=== PATIENT | female | born 1950 | race Caucasian/White ===

== ENCOUNTER 2018-06-27 10:14 | Outpatient (CLI) | payer MEDICARE ==
--- NOTE | 2018-06-27 13:58 | MRI ---
MRI CERVICAL SPINE NONCONTRASTS: Date: 06/27/18 INDICATION: Cervical spine radiculopathy. FINDINGS: There is straightening of the normal cervical curvature with multilevel disc osteophyte formation eff acing the ventral thecal sac, although there is no significant cord deformity or obvious intramedulla ry signal abnormality. Patient motion is present during the exam, which does limit assessment. C1-2: There is no significant central canal stenosis. C2-3: No high grade central canal stenosis. There is mild left foraminal narrowing due to uncinate p rocess hypertrophy. Right neural foramen is patent. C3-4: No significant central canal stenosis. There is moderate left and mild right neural foraminal narrowing due the patient uncinate process and facet hypertrophy. C4-5: Broad based disc osteophyte complex results in mild narrowing of the central canal, and when c ombined with moderate left degenerative facet hypertrophy, results in severe left foraminal stenosis. There is mild narrowing of the right neural foramen. C5-6: Broad based disc osteophyte results in mild effacement of the ventral thecal sac, and moderate biforaminal stenosis. C6-7: No high grade central canal stenosis. Mild narrowing of each neural foramen on the basis of di sc osteophyte and uncinate process hypertrophy. C7-T1: No significant compromise of central canal or neural foramina. No acute marrow edema or paraspinous soft tissue edema. The imaged posterior fossa contents reveal no acute abnormality. There is cerebellar ectopia, incompletely assessed. IMPRESSION: 1. Multilevel cervical spine degenerative change, as outlined above. 2. 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 Recommend follow-up with de dicated brain MRI. POS: [facility]
== END 2018-06-27 10:15 | disposition home or self-care (01) ==
LOC: TBSIIMAG 10:14
PROVIDERS: ATTEND Specialist
DX: M47.22 Other spondylosis with radiculopathy, cervical region (principal)
CPT/HCPCS: 72141

== ENCOUNTER 2018-11-28 15:32 | Outpatient (CLI) | payer MEDICARE ==
--- NOTE | 2018-11-28 16:49 | RAD ---
LUMBAR SPINE THREE VIEWS: 11/28/18 HISTORY: Lumbar radiculopathy. Bilateral leg pain. FINDINGS: Lateral neutral, lateral extension, lateral flexion views lumbar spine demonstrates five lumbar type vertebral bodies. L4-L5: Neutral 8 mm of anterolisthesis, flexion 9 mm of anterolisthesis, extension 7 mm of anterolist hesis. There is vacuum disc phenomenon at L4-L5. Mild posterior element hypertrophy is noted. IMPRESSION: Spondylolisthesis of L4 upon L5 as above. POS: [facility]
--- NOTE | 2018-11-28 17:04 | MRI ---
MRI LUMBAR SPINE WITHOUT CONTRAST: Date: 11/28/18 HISTORY: Lumbar radiculopathy. Bilateral leg pain. COMPARISON: None. FINDINGS: Appropriate T1 marrow signal intensity of the lumbar vertebra. Lumbar spine vertebral body height is maintained. There is no fracture. No significant STIR hyperintensity to suggest vertebral body edema or ligamentous injury. 4.2 mm of retrolisthesis of T11 upon T12 and 7.4 mm of anterolisthesis of L4 upon L5. Vacuum disc phe nomenon at L4-L5 and L5-S1 is noted. Symmetric signal intensity of the psoas muscles. There are T2 hyperintensities in the left and right renal pelvis likely representing bilateral parapelvic cysts. Conus medullaris terminates at the infer ior aspect of T12. T11-T12: No high grade central canal stenosis. Mild to moderate bilateral foraminal narrowing. T12-L1: Adequate disc hydration. Small central disc protrusion. Mild central canal stenosis. Patent neural foramina. L1-L2: Adequate disc hydration. Mild ligamentum flavum thickening and facet hypertrophy. Overall mil d central canal stenosis. Neural foramina are patent. L2-L3: Adequate disc hydration. There is a broad based disc bulge with a right subarticular componen t. There is narrowing of the right subarticular zone with partial obscuration of the traversing right L3 nerve root. Bilateral facet hypertrophy is noted. Neural foramina are patent. L3-L4: Adequate disc hydration. Generalized disc bulge, ligamentum flavum thickening, and facet hype rtrophy which results in mild central canal stenosis. Mild narrowing of the right subarticular zone s econdary to disc material and facet hypertrophy. Mild bilateral foraminal narrowing. L4-L5: Mild to moderate loss of disc space height. There is left hemilaminectomy defect. Bilateral f acet hypertrophy is noted. There is no high grade central canal stenosis. Mild to moderate right and mild left foraminal narrowing. L5-S1: Minimal desiccation without significant loss of disc space height. Left hemilaminectomy defec t is noted. There is mild facet hypertrophy. No high grade central canal stenosis. Mild to moderate r ight and severe left foraminal narrowing. IMPRESSION: 1. Left laminectomy defect at L4-L5 and L5-S1. 2. Severe left foraminal narrowing at L5-S1. 3. Narrowing of the right subarticular zone at L2-L3. POS: [facility]
== END 2018-11-28 15:33 | disposition home or self-care (01) ==
LOC: TBSIIMAG 15:32
PROVIDERS: ATTEND Nurse Practitioner Family
DX: M54.16 Radiculopathy, lumbar region (principal); M43.16 Spondylolisthesis, lumbar region; M48.061 Spinal stenosis, lumbar region without neurogenic claudication; M48.07 Spinal stenosis, lumbosacral region; R93.7 Abnormal findings on diagnostic imaging of other parts of musculoskeletal system; Z98.890 Other specified postprocedural states
CPT/HCPCS: 72100; 72148

== ENCOUNTER 2024-08-20 11:56 | Outpatient (CLI) | payer MEDICARE | END 2024-08-20 11:57 | disposition home or self-care (01) | LOC: BICMAMMO 11:56 | PROVIDERS: ATTEND Internal Medicine | DX: Z12.31 Encounter for screening mammogram for malignant neoplasm of breast (principal) | CPT/HCPCS: 77063; 77067 ==